=== PATIENT | male | born 1995 | race Asian ===

== ENCOUNTER 2016-08-22 13:00 | Emergency (ER) | payer OTHER ==
[~2016-08-22] VITALS: Ht 180.3 cm; Wt 71.7 kg
[2016-08-22 13:04] VITALS: BP_SYST 125
--- NOTE | 2016-08-22 13:04 | NUR ---
Patient to ER bed 1 to gown for evaluation. Side rails up. Report given to Tonya NELSON.
--- NOTE | 2016-08-22 13:09 | NUR ---
ER MD Cbaallero at bedside evaluating the patient
--- NOTE | 2016-08-22 13:10 | NUR ---
Patient brought to ER by ALS for evaluation. Patient states that earlier today he took LSD and per paramedics patient was walking bearfooted and fell. Denies N/V, denies pain. No signs of trauma or injury. Patient has superficial abrasions to both palms. AAOx4, unlabored breathing, no signs of acute distress.
[2016-08-22] MEDS ORDERED: NACL 0.9% 1,000 ML IV ONE (13:15)
--- NOTE | 2016-08-22 13:20 | NUR ---
# 20 gauge angiocath placed to right ac. Use of asceptic technique. Opsite placed over site. Blood return noted. Blood for lab drawn from site. Flushed with 10 cc of normal saline. No evidence of infiltration noted. Patient tolerated well.
[2016-08-22 13:36] LABS: BASOPHILS # (AUTO) 0.1 K/uL (0.0-0.2); BASOPHILS % (AUTO) 0.6 % (0.0-2.0); EOSINOPHILS % (AUTO) 0.4 % (0.0-4.0); HEMATOCRIT 47.3 % (36-54); HEMOGLOBIN 16.1 g/dL (14.0-18.0); LYMPHOCYTES # (AUTO) 0.8 K/uL (1.0-5.5); LYMPHOCYTES % (AUTO) 7.8 % (20.5-51.5); MEAN CORPUSCULAR HEMOGLOBIN 29 pg (27-31); MEAN CORPUSCULAR HGB CONC 34 % (32-36); MEAN CORPUSCULAR VOLUME 85 fL (79.0-98.0); MONOCYTES # (AUTO) 0.3 K/uL (0.0-1.0); MONOCYTES % (AUTO) 2.7 % (1.7-9.3); NEUTROPHILS # (AUTO) 9.5 K/uL (1.8-7.7); NEUTROPHILS % (AUTO) 88.5 % (40.0-70.0); PLATELET COUNT (AUTO) 247 K/uL (130-430); RED BLOOD CELL COUNT(AUTO) 5.58 MIL/uL (4.2-6.2); RED CELL DISTRIBUTION WIDTH 12.7 % (9.0-15.0); WHITE BLOOD COUNT (AUTO) 10.7 K/uL (4.5-11.0)
[2016-08-22 13:44] LABS: ANION GAP 12 (5-15); CALCIUM 9.2 mg/dL (8.4-11.0); CHLORIDE 99 mmol/L (98-107); CREATININE 1.41 mg/dL (0.55-1.30); GLUCOSE 144 mg/dL (70-99); INR 1.1 (0.80-1.20); POTASSIUM 3.4 mmol/L (3.5-5.1); PROTHROMBIN TIME 11.4 SECS (9.5-12.5); SODIUM SERUM 135 mmol/L (136-145); UREA NITROGEN, BLOOD 19 mg/dL (8-21)
[2016-08-22 13:47] LABS: ALANINE AMINOTRANSFERASE 24 U/L (12-78); ALBUMIN 4.7 g/dL (3.4-4.8); ASPARTATE AMINOTRANSFERASE 16 U/L (10-37); CREATINE KINASE, TOTAL 227 U/L (39-308); PHOSPHORUS 2.7 mg/dL (2.7-4.5); TOTAL BILIRUBIN 0.5 mg/dL (0.0-1.0); TOTAL PROTEIN, SERUM 8.5 g/dL (6.4-8.3)
[2016-08-22 13:49] LABS: ALCOHOL, BLOOD < 3 mg/dL (<10); GFR AFRICAN AMERICAN 82 mL/min (>90)
--- NOTE | 2016-08-22 14:43 | NUR ---
Patient on gurney, calm, no signs of acute distress.
--- NOTE | 2016-08-22 15:02 | NUR ---
Wounds on both palms and left foot cleaned with NS & Iodine. Bacitracin applied. Bandaids on.
[2016-08-22 16:06] LABS: BARBITURATE, URINE NEGATIVE (NEG <=200); BENZODIAZEPINE, URINE NEGATIVE (NEG <=150); CANNABINOID, URINE NEGATIVE (NEG <=50); COCAINE, URINE NEGATIVE (NEG <=150); METHAMPHETAMINES SCREEN,URINE NEGATIVE (NEG <=500); OPIATE, URINE NEGATIVE (NEG <=100); PHENCYCLIDINE SCREEN,URINE NEGATIVE (NEG <=25); UR TRICYCLIC ANTIDEPRESSANTS NEGATIVE (NEG <=300); URINE AMPHETAMINE NEGATIVE (NEG <=500); URINE METHADONE NEGATIVE (NEG <=200); URINE OXYCODONE SCREEN NEGATIVE (NEG <=100); URINE PROPOXYPHENE SCREEN NEGATIVE (NEG <=300)
--- NOTE | 2016-08-22 16:11 | NUR ---
Patient calm on gurney. No signs of acute distress.
--- NOTE | 2016-08-22 17:56 | NUR ---
ER MD Caballero at bedside discussing discharge plan with patient
[2016-08-22] MEDS ORDERED: BACITRACIN 1 GM OINT TP ONE (18:00)
[2016-08-22 18:21] VITALS: BP_SYST 127
--- NOTE | 2016-08-22 18:21 | NUR ---
Patient given written and verbal discharge instructions and verbalizes understanding. ER MD Caballero discussed with patient the results and treatment provided. Patient in stable condition. ID arm band removed. IV catheter removed intact and dressing applied, no active bleeding. Rx of bacitracin given. Patient educated on pain management and to follow up with PMD. Pain Scale 0/10. Opportunity for questions provided and answered.
== END 2016-08-22 18:21 | disposition home or self-care (01) ==
LOC: SED 13:00
DX: S60.512A Abrasion of left hand, initial encounter (principal); S60.511A Abrasion of right hand, initial encounter; F16.10 Hallucinogen abuse, uncomplicated; W01.0XXA Fall on same level from slipping, tripping and stumbling without subsequent striking against object, initial encounter; Y93.89 Activity, other specified; Y92.89 Other specified places as the place of occurrence of the external cause; Y99.8 Other external cause status
CPT/HCPCS: 36415; 71010; 80053; 80307; 82550; 84100; 84484; 85025; 85610; 85730; 93005; 96360; 99285; G0482; J7030